=== PATIENT | male | born 1970 | race Caucasian/White ===

== ENCOUNTER → 2018-06-05 | Outpatient (CLI) | payer BC ==
[~2018-06-05] MED LIST: ALLERGY RELIEF10 M1 PO; ASPIRIN E.C. 8181 MG PO; CARDENE 20MG CA20 MG PO; GARLIC SUPPLEM300 MG PO; HUMALOG100 U/ML SQ; LANTUS100 U/ML SQ; LEVITRA20 MG PO; LIPITOR40 MG PO; MAXALT MLT10 MG/TAB PO; MEN'S MULTIVITA1 TAB PO; TRICOR48 MG PO
== END ==
LOC: BHSO 09:17
DX: F10.20 Alcohol dependence, uncomplicated (principal)
CPT/HCPCS: G0463

== ENCOUNTER → 2018-11-20 | Outpatient (CLI) | payer BC | LOC: BHSO 09:38 | DX: F41.1 Generalized anxiety disorder (principal) | CPT/HCPCS: G0463 ==

== ENCOUNTER → 2019-02-27 | Outpatient (CLI) | payer BC | LOC: BHSO 10:36 | DX: F33.42 Major depressive disorder, recurrent, in full remission (principal) | CPT/HCPCS: G0463 ==

== ENCOUNTER 2019-03-05 19:06 | Emergency (ER) | payer BC ==
[~2019-03-05] VITALS: Ht 177.8 cm; Wt 109.1 kg
[2019-03-05] MEDS ORDERED: MOMETASONE FUROATE (19:40)
[2019-03-05 19:52] LABS: COLLECTION METHOD CLEAN CATCH
[2019-03-05 19:59] LABS: MUCOUS Present /lpf; PH 5 (5-8); SQUAMOUS EPITHELIAL None Seen /hpf; URINE APPEARANCE Clear; URINE BACTERIA None Seen /hpf; URINE BILIRUBIN Negative (NEGATIVE); URINE BLOOD Negative (NEGATIVE); URINE COLOR Yellow; URINE GLUCOSE 3+ (NEGATIVE); URINE KETONE 2+ (NEGATIVE); URINE LEUKOCYTE ESTERASE Negative (NEGATIVE); URINE NITRATE Negative (NEGATIVE); URINE PROTEIN(semi-quant) 2+ (NEGATIVE); URINE RBC 0-2 /hpf; URINE UROBILINOGEN Negative (NEGATIVE)
[2019-03-05 20:00] LABS: ALBUMIN 4.9 gm/dL (3.5-5.0); C-REACTIVE PROTEIN 0.7 mg/dL (0.0-0.9); CALCIUM 9.9 mg/dL (8.4-10.2); CREATININE, serum 0.91 (0.66-1.25); POTASSIUM 4.4 mmol/L (3.4-5.0); TOTAL PROTEIN 8.1 gm/dL (6.4-8.2)
[2019-03-05 20:12] LABS: BASO # 0.1 (0.0-0.2); BASO % 0.4 % (0.0-2.0); EOS % 0.2 % (0-4.0); GRAN % 77.6 % (42.2-75.2); HEMATOCRIT 44.4 % (42.0-52.0); HEMOGLOBIN 15.4 g/dl (13.5-18.0); LYMPH % 15.6 % (20.0-51.0); MEAN CELL VOLUME 84 fl (80.0-100.0); MEAN CORPUSCULAR HEMOGLOBIN 29 pg (27.0-31.0); MEAN CORPUSCULAR HGB CONC 35 g/dl (33.0-37.0); MEAN PLATELET VOLUME 9.4 fl (7.4-10.4); MONO # 0.7 (0.1-0.6); MONO % 5.8 % (1.7-9.3); PLATELET COUNT 332 K/mm3 (130-400); RED BLOOD COUNT 5.27 M/mm3 (4.20-5.60); REDCELL DISTRIBUTION WIDTH-CV 12.9 % (11.5-14.5)
[2019-03-05] MEDS ORDERED: PHENERGAN 25 TA25 MG PO (21:28)
[2019-03-05 21:40] VITALS: BP 125/82; PULSE 81
== END 2019-03-05 21:47 | disposition home or self-care (01) ==
LOC: COL.ER 19:06
PROVIDERS: Emergency Medicine
DX: R11.10 Vomiting, unspecified (principal); R19.7 Diarrhea, unspecified; E86.9 Volume depletion, unspecified; E10.10 Type 1 diabetes mellitus with ketoacidosis without coma
CPT/HCPCS: C9113; J2405; J2550; J7030

== ENCOUNTER 2019-03-26 14:02 | Emergency (ER) | payer BC ==
[~2019-03-26] VITALS: Ht 177.8 cm; Wt 111.4 kg
[~2019-03-26 14:02] MED LIST changes: +MOMETASONE FUROATE; +PHENERGAN 25 TA25 MG PO
[2019-03-26 14:09] VITALS: TEMP 98.3
[2019-03-26 14:39] LABS: BASO # 0.1 (0.0-0.2); BASO % 0.6 % (0.0-2.0); EOS # 0.1 (0.0-0.7); EOS % 1.5 % (0-4.0); GRAN # 5.4 (1.4-6.5); GRAN % 67.1 % (42.2-75.2); HEMATOCRIT 40.8 % (42.0-52.0); HEMOGLOBIN 14.2 g/dl (13.5-18.0); LYMPH # 1.8 (1.2-3.4); LYMPH % 22.8 % (20.0-51.0); MEAN CELL VOLUME 84 fl (80.0-100.0); MEAN CORPUSCULAR HEMOGLOBIN 29 pg (27.0-31.0); MEAN CORPUSCULAR HGB CONC 35 g/dl (33.0-37.0); MEAN PLATELET VOLUME 9.5 fl (7.4-10.4); MONO # 0.6 (0.1-0.6); MONO % 7.5 % (1.7-9.3); PLATELET COUNT 260 K/mm3 (130-400); RED BLOOD COUNT 4.85 M/mm3 (4.20-5.60); REDCELL DISTRIBUTION WIDTH-CV 12.9 % (11.5-14.5)
[2019-03-26 14:45] LABS: ALANINE AMINOTRANSFERASE 33 U/L (21-72); ALBUMIN 4.2 gm/dL (3.5-5.0); ALKALINE PHOSPHATASE 77 U/L (50-136); ANION GAP 9 mmol/L (7-16); AST,SGOT 29 U/L (15-37); BILIRUBIN,TOTAL 0.4 mg/dL (0.0-1.0); BLOOD UREA NITROGEN 17 mg/dL (9-20); CALCIUM 9.3 mg/dL (8.4-10.2); CARBON DIOXIDE 27 mmol/L (22-30); CHLORIDE 101 mmol/L (98-107); CREATININE, serum 0.81 (0.66-1.25); GLUCOSE 297 mg/dL (74-106); POTASSIUM 4.6 mmol/L (3.4-5.0); SODIUM 137 mmol/L (137-145); TOTAL PROTEIN 7.1 gm/dL (6.4-8.2)
[2019-03-26 14:47] LABS: ALCOHOL(ethanol),MEDICAL < 10 mg/dL
[2019-03-26 16:28] VITALS: BP 127/72; PULSE 69
== END 2019-03-26 16:31 | disposition home or self-care (01) ==
LOC: COL.ER 14:02
PROVIDERS: Emergency Medicine
DX: F98.5 Adult onset fluency disorder (principal); F41.9 Anxiety disorder, unspecified; F90.9 Attention-deficit hyperactivity disorder, unspecified type; E10.9 Type 1 diabetes mellitus without complications

== ENCOUNTER → 2019-04-08 | Outpatient (CLI) | payer BC | LOC: COL.RAD 12:12 | DX: Z01.812 Encounter for preprocedural laboratory examination (principal); G51.0 Bell's palsy; F80.81 Childhood onset fluency disorder | CPT/HCPCS: A9585 ==

== ENCOUNTER → 2020-02-16 | Outpatient (CLI) | payer BC | LOC: BHSO 11:02 | DX: F33.42 Major depressive disorder, recurrent, in full remission (principal) | CPT/HCPCS: G0463 ==

== ENCOUNTER 2020-11-12 21:00 | Emergency (ER) | payer BC ==
[~2020-11-12] VITALS: Ht 177.8 cm; Wt 109.1 kg
[2020-11-12 22:54] LABS: BASO % 0.1 % (0.0-2.0); EOS % 0.1 % (0-4.0); GRAN # 5.3 (1.4-6.5); GRAN % 74.6 % (42.2-75.2); HEMATOCRIT 47.3 % (42.0-52.0); HEMOGLOBIN 16.4 g/dl (13.5-18.0); LYMPH # 1.2 (1.2-3.4); LYMPH % 16.3 % (20.0-51.0); MEAN CELL VOLUME 84 fl (80.0-100.0); MEAN CORPUSCULAR HEMOGLOBIN 29 pg (27.0-31.0); MEAN CORPUSCULAR HGB CONC 35 g/dl (33.0-37.0); MEAN PLATELET VOLUME 9.5 fl (7.4-10.4); MONO # 0.6 (0.1-0.6); MONO % 8.6 % (1.7-9.3); PLATELET COUNT 189 K/mm3 (130-400); RED BLOOD COUNT 5.66 M/mm3 (4.20-5.60)
[2020-11-12 23:09] LABS: ALANINE AMINOTRANSFERASE 61 U/L (4-49); ALBUMIN 4.1 gm/dL (3.5-5.0); ALKALINE PHOSPHATASE 59 U/L (50-136); AMYLASE 75 U/L (30-110); ANION GAP 9 mmol/L (7-16); AST,SGOT 50 U/L (15-37); BILIRUBIN,TOTAL 0.7 mg/dL (0.0-1.0); BLOOD UREA NITROGEN 23 mg/dL (9-20); C-REACTIVE PROTEIN < 0.5 mg/dL (0.0-0.9); CALCIUM 8.7 mg/dL (8.4-10.2); CARBON DIOXIDE 22 mmol/L (22-30); CHLORIDE 105 mmol/L (98-107); CREATININE, serum 0.72 (0.66-1.25); GLUCOSE 200 mg/dL (74-106); LIPASE 40 U/L (23-300); POTASSIUM 4.5 mmol/L (3.4-5.0); SODIUM 137 mmol/L (137-145)
[2020-11-13 02:02] LABS: COLLECTION METHOD CLEAN CATCH
[2020-11-13] MEDS ORDERED: ZOFRAN ODT8 MG PO (02:05)
[2020-11-13] MEDS ORDERED: PHENERGAN 25 TA25 MG PO (02:05)
[2020-11-13 02:07] LABS: PH 5 (5-8); SQUAMOUS EPITHELIAL None Seen /hpf; URINE APPEARANCE Clear; URINE BACTERIA None Seen /hpf; URINE BILIRUBIN Negative (NEGATIVE); URINE BLOOD Negative (NEGATIVE); URINE COLOR Yellow; URINE GLUCOSE 3+ (NEGATIVE); URINE KETONE 2+ (NEGATIVE); URINE LEUKOCYTE ESTERASE Negative (NEGATIVE); URINE NITRATE Negative (NEGATIVE); URINE PROTEIN(semi-quant) 2+ (NEGATIVE); URINE RBC 0-2 /hpf; URINE UROBILINOGEN Negative (NEGATIVE)
[2020-11-13 02:37] VITALS: BP 138/74; PULSE 74; TEMP 98.6
== END 2020-11-13 02:38 | disposition home or self-care (01) ==
LOC: COL.ER 21:00
PROVIDERS: Nurse Practitioner Family
DX: U07.1 COVID-19 (principal); E10.10 Type 1 diabetes mellitus with ketoacidosis without coma; Z79.4 Long term (current) use of insulin
CPT/HCPCS: C9113; J2405; J7030

== ENCOUNTER 2020-11-15 09:48 | Emergency (ER) | payer BC ==
[~2020-11-15] VITALS: Ht 177.8 cm; Wt 104.5 kg
[~2020-11-15 09:48] MED LIST changes: +ZOFRAN ODT8 MG PO
[2020-11-15 10:40] LABS: COLLECTION METHOD CLEAN CATCH
[2020-11-15 10:50] LABS: MUCOUS Present /lpf; PH 5 (5-8); SQUAMOUS EPITHELIAL None Seen /hpf; URINE APPEARANCE Clear; URINE BACTERIA None Seen /hpf; URINE BILIRUBIN Negative (NEGATIVE); URINE BLOOD 1+ (NEGATIVE); URINE COLOR Yellow; URINE GLUCOSE 3+ (NEGATIVE); URINE KETONE 2+ (NEGATIVE); URINE LEUKOCYTE ESTERASE Negative (NEGATIVE); URINE NITRATE Negative (NEGATIVE); URINE PROTEIN(semi-quant) 3+ (NEGATIVE); URINE RBC None Seen /hpf; URINE UROBILINOGEN Negative (NEGATIVE)
[2020-11-15 11:03] LABS: TRICYCLIC ANTIDEPRESS URINE NEGATIVE
[2020-11-15 11:15] LABS: BASO % 0.2 % (0.0-2.0); EOS % 0.2 % (0-4.0); GRAN # 3.4 (1.4-6.5); GRAN % 69.1 % (42.2-75.2); HEMATOCRIT 46.6 % (42.0-52.0); HEMOGLOBIN 16.1 g/dl (13.5-18.0); LYMPH % 20.4 % (20.0-51.0); MEAN CELL VOLUME 83 fl (80.0-100.0); MEAN CORPUSCULAR HEMOGLOBIN 29 pg (27.0-31.0); MEAN CORPUSCULAR HGB CONC 35 g/dl (33.0-37.0); MEAN PLATELET VOLUME 9.2 fl (7.4-10.4); MONO # 0.5 (0.1-0.6); MONO % 9.7 % (1.7-9.3); PLATELET COUNT 169 K/mm3 (130-400); RED BLOOD COUNT 5.62 M/mm3 (4.20-5.60); REDCELL DISTRIBUTION WIDTH-CV 12.8 % (11.5-14.5)
[2020-11-15 11:23] LABS: POTASSIUM 4.5 mmol/L (3.4-5.0)
[2020-11-15 11:26] LABS: ACETAMINOPHEN < 10 ug/mL (10-30); ALANINE AMINOTRANSFERASE 40 U/L (4-49); ALCOHOL(ethanol),MEDICAL < 10 mg/dL; ALKALINE PHOSPHATASE 57 U/L (50-136); ANION GAP 7 mmol/L (7-16); AST,SGOT 35 U/L (15-37); BILIRUBIN,TOTAL 0.9 mg/dL (0.0-1.0); BLOOD UREA NITROGEN 16 mg/dL (9-20); CALCIUM 9.1 mg/dL (8.4-10.2); CARBON DIOXIDE 24 mmol/L (22-30); CHLORIDE 103 mmol/L (98-107); CREATININE, serum 0.72 (0.66-1.25); GLUCOSE 205 mg/dL (74-106); SALICYLATE < 1.0 mg/dL; SODIUM 134 mmol/L (137-145)
[2020-11-15 11:56] LABS: TSH w REFLEX 0.797 uIU/mL (0.465-4.680)
[2020-11-16 15:29] VITALS: BP 121/69; PULSE 79; TEMP 98.2
== END 2020-11-16 16:30 ==
LOC: COL.ER 09:48
PROVIDERS: Nurse Practitioner Primary Care
DX: T14.91XA Suicide attempt, initial encounter (principal); U07.1 COVID-19; F32.9 Major depressive disorder, single episode, unspecified; E10.9 Type 1 diabetes mellitus without complications; E78.5 Hyperlipidemia, unspecified; I10 Essential (primary) hypertension; Z79.4 Long term (current) use of insulin; Z79.899 Other long term (current) drug therapy; X83.8XXA Intentional self-harm by other specified means, initial encounter
CPT/HCPCS: J1815; J2270; J2405; J2550; J7030